=== PATIENT | male | born 1960 | race Caucasian/White ===

== ENCOUNTER 2025-03-26 05:45 | Day surgery (SDC) | payer BC ==
[2025-03-26] MEDS ORDERED: Tylenol #3 Tablet PO PRN (06:00)
[2025-03-26] MEDS: Lactated Ringers 1,000 ML IV SCH (06:11)
[2025-03-26] MEDS: TETRACAINE 0.5% STERI-UNIT SOL OP ONE (06:24)
[2025-03-26] MEDS ORDERED: Lactated Ringers 1,000 ML IV SCH (06:30)
[2025-03-26 06:33] VITALS: RESP 18
[2025-03-26] MEDS: PRED-FORTE 1% OPHTHALMIC OP ONE (06:37)
[2025-03-26] MEDS: MOXIFLOXACIN OP ONE (06:43)
[2025-03-26] MEDS: Cyclogyl 1% EYE DROPS OP SCH (06:49)
[2025-03-26] MEDS ORDERED: ROCURONIUM BROMIDE IV ONE ×2 (08:01→08:51)
[2025-03-26] MEDS ORDERED: propofoL IV ONE (08:01)
[2025-03-26] MEDS ORDERED: Zofran 4 MG/2 ML VIAL ONE ×2 (08:01→12:08)
[2025-03-26] MEDS ORDERED: BUPIVACAINE 0.75% 10 ML VIAL PF IJ ONE (09:00)
[2025-03-26] MEDS ORDERED: BRIMONIDINE 0.2% OPHTH DROPS OP ONE (09:00)
[2025-03-26] MEDS ORDERED: BSS 15 ML IO ONE (09:00)
[2025-03-26] MEDS ORDERED: BSS PLUS IO ONE (09:00)
[2025-03-26] MEDS ORDERED: BETADINE 5% OPHTHALMIC 30 ML OP ONE (09:00)
[2025-03-26] MEDS ORDERED: VANCOCIN INJECTION IV ONE (09:00)
[2025-03-26] MEDS ORDERED: BRIDION 200MG/2ML IV ONE (10:20)
[2025-03-26] MEDS: Zofran 4 MG/2 ML VIAL IV STA (12:11)
[2025-03-26 13:01] VITALS: BP 125/70; PULSE 63; TEMP 96.8; O2SAT 96
--- NOTE | 2025-03-27 12:38 | OP ---
SURGERY DATE/TIME: 03/26/2025 3987 - 5025 PREOPERATIVE DIAGNOSIS: Enlarging macular hole, pseudophakia, right eye. POSTOPERATIVE DIAGNOSIS: Enlarging macular hole, mild posterior capsular opacity, pseudophakia, right eye. PROCEDURE: Pars plana vitrectomy, removal of posterior capsular opacity, internal-limiting membrane peel, air-fluid exchange SF6 24%, right eye. SURGEON: Romeo Gaxiola MD BEVERAGE HOST: None. ANESTHESIA: General endotracheal. ESTIMATED BLOOD LOSS: Minimal. COMPLICATIONS: None. SPECIMEN REMOVED: None. INDICATIONS: The patient has a history of sudden onset of visually significant macular hole that over time slightly enlarged. He was referred for cataract surgery recently to prepare him for potential macular hole repair. His macular hole did not close and slightly enlarged. He and accompanying were well informed about the risks, benefits, and alternatives. Risks of the surgery and anesthesia including, but not limited to, potential failure, potential need of further surgeries, loss of vision, loss of eye, chronic pain, disfigurement, cardiovascular embolic event, respiratory failure, stroke, and were explained to them. No guarantees were issued. He was very motivated to proceed with surgical intervention after waiting a brief waiting period. A preoperative clearance was obtained from his primary care physician. Verbal and written consent was obtained. Surgery was arranged per his request. DESCRIPTION OF PROCEDURE AND FINDINGS: In preoperative area, the right eye was remarked and any additional questions that the patient and accompanying had were answered to the best of my knowledge. No guarantees were issued. He still was very motivated to proceed with the surgical intervention under general anesthesia. He was brought to the OR. A time-out was performed with the rest of the team. Correct eye, correct procedure and identity were confirmed. After induction of general anesthesia and intubation, the right eye was prepped and draped in the usual sterile fashion. Lid speculum was placed. Additional 5% Betadine was applied to the globe and was washed after approximately 1 minute. He had his cataract surgery almost 2 weeks ago and he had some minimal iritis present at the last preop exam a few days ago. Using the 27-gauge MVR blade, 3.5 mm behind the limbus inferotemporally, superotemporally, and superonasally, 3 valved scleral cannulas were placed. The infusion cannula was inserted in the inferotemporal scleral cannula and its position in the vitreous cavity was checked before activation. Using the endoilluminator vitrector and ultra-wide angle viewing system named ResTradeSync, core vitrectomy and peripheral vitrectomy were performed. The posterior hyaloid was elevated centrally and some additional vitrectomy was performed. Using a soft tipped aspiration cannula, [place] Blue G of the brand name TissueBlue was injected over the macula and was allowed to sit there for a couple of minutes and then was washed away. At this time, upon removing all the [place] Blue dye, it was noted that the posterior hyaloid was not completely elevated. Therefore, using the vitrectomy probe, further elevation of the posterior hyaloid was performed and finally the posterior hyaloid was successfully elevated completely over the entire macula. However, it was still very strongly attached to the retina posterior to the macula. A decent staining of the internal limiting membrane was still obtained since the posterior hyaloid was already partially detached before the injection of the dye. After this, further elevation of the posterior hyaloid was performed and some further more vitrectomy was performed 360 degrees and especially around the trocar areas. Since there were a few air bubbles behind the posterior capsule, behind the intraocular lens, the small air bubbles were removed behind the intraocular lens and the posterior capsule opacity was also removed using the vitrectomy probe. Since the cornea was edematous, the corneal epithelium was easily debrided using the blunt balanced salt solution irrigation cannula. After this, using the ILM forceps, endoilluminator, and macular contact lens, the internal limiting membrane was easily peeled off around the macular hole with a good margin, 360 degrees. It has to be noted that the smallest diameter of the macular hole was less than 300 microns. After this aggressive vitrectomy was performed with a shaving over the vitreous base and the posterior hyaloid was gradually shaved off anterior to equator 360 degrees. The vitreous was very strongly attached to the vitreous all around 360 degrees. After extensive shaving of the vitreous base and further elevation of the posterior hyaloid, the peripheral retina was inspected using the endoilluminator and scleral depression under the Resight ultra-wide angle viewing system. No retinal holes or breaks were seen. Air-fluid exchange was performed then repeated after a few minutes. The superotemporal scleral cannula was removed and the sclerotomy site was partially self-sealing and so a 7-0 Vicryl suture was placed there. 40 mL of SF6 24% was washed out through the vitreous cavity through the infusion cannula. The superonasal scleral cannula was removed and that sclerotomy site was completely self-sealing. The inferotemporal scleral cannula was removed and that sclerotomy site was self-sealing as well. The final intraocular pressure was adequate. Subconjunctival vancomycin, ceftazidime, dexamethasone, and 0.75% Marcaine were administered. The patient received additional 5% Betadine. Topical brimonidine and Tobrex ointment were applied to the globe. The patient tolerated the procedure well, was extubated successfully and left the operating room after the eye was patched and shielded. DISPOSITION: The patient was discharged home after meeting discharge criteria of the PACU anesthesia team and was given both verbal and written instruction sheets and has a followup in the office with me tomorrow.
== END 2025-03-26 13:21 | disposition home or self-care (01) ==
LOC: SDC 05:45
PROVIDERS: ATTEND Ophthalmology
DX: H35.341 Macular cyst, hole, or pseudohole, right eye (principal); H26.491 Other secondary cataract, right eye; Z96.1 Presence of intraocular lens